=== PATIENT | female | born 1960 | race Asian ===

== ENCOUNTER 2023-11-15 06:10 | Emergency (ER) | payer MEDICARE, OTHER, SELFPAY ==
[2023-11-15 06:13] VITALS: BP 114/70
[2023-11-15 06:42] VITALS: BP 91/60
[2023-11-15 06:46] VITALS: BP 91/60
[2023-11-15 06:47] VITALS: BMI 24.8
[2023-11-15 07:00] VITALS: BP 103/60
[2023-11-15 08:00] VITALS: BP 104/65
--- NOTE | 2023-11-15 08:21 | ED.GENMED ---
History of Present Illness
General
Chief Complaint: Head Injury
Source: patient and family
Exam Limitations: none
Time Seen by Provider: 11/15/23 07:52
Nursing documentation reviewed up to this point in time: agreed with
History of Present Illness
History of Present Illness:
63 yo female with no significant PMHX got up this a.m. to go to bathroom, slipped and fell onto buttocks, fell back and hit back of head on floor. Not anticoagulated. Denies LOC, has pain at site on occiput, has 'a little' pain both sides of neck
posteriorly, although she stated nausea in triage, denies nausea at this time. She feels 'a little dizzy,' Denies numbness, tingling or weakness or injury to extremities and has been ambulating well. Her tailbone is sore.
Past History
Past History
ED Past Medical History: None and Other (Migraine headaches, a Lyme's disease)
ED Past Surgical History: None
Social History
Tobacco: Non-smoker
Alcohol: None
Personal:
Living: with family
Family History
Family History: Negative Diabetes, Hypertension or CAD
Review of Systems
Review of Systems
Allergies reviewed?: Yes
All Other Systems: ROS reviewed and negative except as documented in HPI and ROS
Respiratory: Denies trouble breathing
Cardiac: Denies chest pain or syncope
ABD/GI: Denies abdominal pain, nausea or vomiting
: Denies dysuria, incontinence or difficulty voiding
Musculoskeletal: Reports neck pain (mild) and back pain (mild tailbone area)
Skin: Reports no symptoms
Neurological: Reports dizzy (mild); Denies headache, weakness or numbness
Phy Exam
Physical Exam
Physical Exam:
GENERAL: No acute distress. A&Ox3.
CONSTITUTIONAL: Afebrile.
Head: NC/AT mild tenderness left occipital area.
EYES: PERRL, conjunctivae normal
Neck: Supple
ENMT: moist mucus membranes, Pharynx nl
RESPIRATORY: Regular respirations, nonlabored, lungs clear.
CARDIOVASCULAR: Regular rate and rhythm, no murmurs, no rubs.
GI: Soft, nontender, normal BS
MUSCULOSKELETAL: No spinal bony tenderness, mild tenderness bilateral paracervical ST. Full ROM of neck. Full ROM to rotation and forward flexion of torso with no indication of pain. No bony tenderness to L spine, sacrum or coccyx. Moves with ease.
Well perfused.
SKIN: Warm, dry, pink
PSYCH: Normal mood and affect. Well kept, interactive and appropriate
NEUROLOGIC: Awake, alert and oriented. CN 2-12 intact. No focal neurological deficits. Ambulates well with steady gait.
Course
Orders/Labs/Results
Orders:
Orders
11/15/23 06:18
CT Head W/o Iv Contrast Urgent
Comment:
Reason For Exam: fall hit her head
Cervical Spine wo Contrast CT [CT Cervical Spine W/o Iv Contr] Urgent
Comment:
Reason For Exam: fall hit her head
Vital Signs
Initial and Last Documented VS:
Initial Vital Signs
Temp Pulse Resp BP Pulse Ox
97.4 F 69 19 114/70 99
11/15/23 06:13 11/15/23 06:13 11/15/23 06:13 11/15/23 06:13 11/15/23 06:13
Last Documented Vital Signs
Temp Pulse Resp BP Pulse Ox
97.4 F 58 18 104/65 98
11/15/23 06:13 11/15/23 06:46 11/15/23 06:46 11/15/23 08:00 11/15/23 08:00
MDM/Problems Addressed
Differential Diagnosis Includes:
minor head injury, concussion, fx skull, ICH
MDM/Problems Addressed:
63 yo female with no significant PMHX got up this a.m. to go to bathroom, slipped and fell onto buttocks, fell back and hit back of head on floor. Not anticoagulated. Denies LOC, has pain at site on occiput, has 'a little' pain both sides of neck
posteriorly, although she stated nausea in triage, denies nausea at this time. She feels 'a little dizzy,' Denies numbness, tingling or weakness or injury to extremities and has been ambulating well. Her tailbone is sore.
No spinal bony tenderness specifically no tenderness to sacrum coccyx with palpation, no indication for imaging, family comfortable with this.
Pt ambulating well.
CT scan head: Neg
Xray C spine: Neg
No significant injury.
Pt ambulated out with normal gait at discharge
*Critical Care Note
Total Time (30-74mins, 75-104mins- exclusive of procedures): Not Applicable
ED Attending Note
-
Portions of this chart may have been created with voice recognition software.� Occasional wrong word or��sound alike� substitutions may have occurred due to the inherent limitations of voice recognition software.
Discharge Plan
Departure
Patient Disposition: Home (Routine Discharge)
Date of Disposition: 11/15/23
Time of Disposition: 08:17
Patient with high blood pressure during this ER visit?: No
Condition: Good
Discharge Problem:
Fall from slip, trip, or stumble, Contusion of coccyx, Acute cervical myofascial strain, Minor head injury without loss of consciousness
Instructions: Whiplash (DC), Laceration Repair With Glue (DC), Contusion (DC)
Prescriptions:
No Action
multivitamin [[id number]] 1 EACH tablet
1 ea PO DAILY
Referrals:
Augustine Ortega MD [Family Provider] - As needed
Activity Restrictions/Additional Instructions:
As we discussed, Tylenol 650 mg every 6 hours as needed for headache, pain for the next two days. After that you may use Tylenol or Ibuprofen as needed.
Nothing worrisome on your xray and head CT scan.
You may be more stiff and sore in next 2 days before you start to feel better, this is not unusual after a fall.
Interventions
Interventions:
*Risk Screen - Suicide Last Done: 11/15/23 06:13
*General Assessment Last Done: 11/15/23 06:13
*Neglect/Abuse Screening Last Done: 11/15/23 06:13
ED- Fall Risk Assessment Last Done: 11/15/23 06:44
*ED COVID-19 Vaccine History Last Done: 11/15/23 06:13
*Nursing Disposition Last Done: 11/15/23 08:51
ED- Neurological Assessment Last Done: 11/15/23 06:44
ED-Skin Assessment Last Done: 11/15/23 06:44
Discharge Date and Time
Discharge Date/Time: 11/15/23 08:52
Print Language: UKRAINIAN
== END 2023-11-15 08:52 | disposition home or self-care (01) ==
LOC: EMR 06:10
PROVIDERS: EMERGENCY PHYSICIAN Emergency Medicine; FAMILY PHYSICIAN Family Medicine
DX: S16.1XXA Strain of muscle, fascia and tendon at neck level, initial encounter (principal); S30.0XXA Contusion of lower back and pelvis, initial encounter; S09.90XA Unspecified injury of head, initial encounter; R42 Dizziness and giddiness; W01.0XXA Fall on same level from slipping, tripping and stumbling without subsequent striking against object, initial encounter; G43.909 Migraine, unspecified, not intractable, without status migrainosus; F32.A Depression, unspecified; H35.30 Unspecified macular degeneration
CPT/HCPCS: 99284; 70450; 72125